=== PATIENT | female | born 1960 | race Caucasian/White ===

== ENCOUNTER 2018-12-10 07:07 | Day surgery (SDC) | payer OTHER ==
[~2018-12-10] VITALS: Ht 160 cm; Wt 52.2 kg
[2018-12-10 07:40] VITALS: BP 144/85
[2018-12-10 11:29] VITALS: BP 148/85
== END 2018-12-10 11:15 | disposition home or self-care (01) ==
LOC: GI 07:07 → OR 08:00 → GI 11:15
PROVIDERS: Internal Medicine Gastroenterology
PROC: 0DBG8ZZ Excision of Left Large Intestine, Via Natural or Artificial Opening Endoscopic (ICD-10-PCS; principal; 2018-12-10 08:00)
PROC: 0DBF8ZZ Excision of Right Large Intestine, Via Natural or Artificial Opening Endoscopic (ICD-10-PCS; 2018-12-10 08:00)
DX: Z12.11 Encounter for screening for malignant neoplasm of colon (principal); D12.4 Benign neoplasm of descending colon; D12.2 Benign neoplasm of ascending colon; K63.5 Polyp of colon; K56.51 Intestinal adhesions [bands], with partial obstruction; F17.210 Nicotine dependence, cigarettes, uncomplicated; Z90.710 Acquired absence of both cervix and uterus
CPT/HCPCS: 45378; J1200; J1610; J2250; J2310; J3010; J3490